=== PATIENT | male | born 1985 | race African-American/Black ===

== ENCOUNTER 2016-08-22 06:32 | Emergency (ER) | payer BC ==
[~2016-08-22] VITALS: Ht 188 cm; Wt 89.1 kg
[2016-08-22] MEDS ORDERED: CARBAMAZEPINE100 M2 PO (06:46)
[2016-08-22] MEDS ORDERED: RISPERIDONE1 MG PO (06:46)
[2016-08-22 07:00] VITALS: BP 132/77
== END 2016-08-22 07:06 | disposition home or self-care (01) ==
LOC: EME 06:32
DX: F31.9 Bipolar disorder, unspecified (principal); Z76.0 Encounter for issue of repeat prescription
CPT/HCPCS: 99281; 99284

== ENCOUNTER 2017-01-05 11:29 | Emergency (ER) | payer BC ==
[~2017-01-05] VITALS: Ht 182.9 cm; Wt 88.5 kg
[~2017-01-05 11:29] MED LIST: CARBAMAZEPINE100 M2 PO; RISPERIDONE1 MG PO
[2017-01-05] MEDS ORDERED: RISPERDAL1 MG PO (12:07)
[2017-01-05] MEDS ORDERED: CARBAMAZEPINE100 M1 PO (12:07)
[2017-01-05 12:14] VITALS: BP 149/85
== END 2017-01-05 12:14 | disposition home or self-care (01) ==
LOC: EME 11:29
DX: F31.9 Bipolar disorder, unspecified (principal); Z76.0 Encounter for issue of repeat prescription; F17.200 Nicotine dependence, unspecified, uncomplicated
CPT/HCPCS: 99281; 99283

== ENCOUNTER 2017-01-11 10:14 | Emergency (ER) | payer BC ==
[~2017-01-11] VITALS: Ht 182.9 cm; Wt 93.7 kg
[~2017-01-11 10:14] MED LIST changes: +CARBAMAZEPINE100 M1 PO; +RISPERDAL1 MG PO
[2017-01-11] MEDS ORDERED: RISPERDAL1 MG PO (11:07)
[2017-01-11] MEDS ORDERED: TEGRETOL100 MG PO (11:07)
[2017-01-11 11:19] VITALS: BP 126/76
== END 2017-01-11 11:21 | disposition home or self-care (01) ==
LOC: EME 10:14
DX: Z76.0 Encounter for issue of repeat prescription (principal); F31.9 Bipolar disorder, unspecified; F17.200 Nicotine dependence, unspecified, uncomplicated
CPT/HCPCS: 99281; 99283